=== PATIENT | female | born 1975 | race Caucasian/White ===

== ENCOUNTER 2025-09-05 10:13 | Outpatient (CLI) | payer OTHER | END 2025-09-05 10:14 | disposition home or self-care (01) | LOC: CSHMAMMO 10:13 | PROVIDERS: ATTEND Physician Assistant | DX: Z12.31 Encounter for screening mammogram for malignant neoplasm of breast (principal); N64.89 Other specified disorders of breast; R92.333 Mammographic heterogeneous density, bilateral breasts | CPT/HCPCS: 77063; 77067 ==